=== PATIENT | female | born 1970 | race Caucasian/White ===

== ENCOUNTER 2019-10-25 14:23 | Emergency (ER) | payer OTHER, SELFPAY ==
[2019-10-25 14:34] VITALS: BP 152/70; PULSE 79; RESP 16; TEMP 36.1; O2SAT 100
[2019-10-25] MEDS: KETOROLAC (*BKC) 60 MG/2 ML VIAL IM (14:52)
[2019-10-25] MEDS: ONDANSETRON HCL ODT 4 MG TABLET 8 MG SUBLINGUAL (14:52)
--- NOTE | 2019-10-25 15:18 | ED.GENADULT ---
HPI - General Adult General Chief complaint: Headache Stated complaint: headache/vomiting History of Present Illness HPI narrative: Patient is a 49-year-old female presents to the urgent care via POV for evaluation of a migraine that occurred at approximately 11 AM. She reports her pain is in the frontal and occipital region of head. She also reports fatigue, nausea and vomiting. Current pain level is 10 out of 10. She states she has not experienced a migraine in months due to auricle piercing. She states pain is constant and throbbing in nature. Current migraine is similar to previous migraines. She states symptoms usually resolved with Maxalt although did not have any with her when migraine began. Noise worsened symptoms. Pertinent negatives: fever, chills, sweats, change in appetite, poor p.o. intake, dizziness, lymphadenopathy, vision changes, swelling, erythema, weakness, syncope, vertigo, LOC, seizure activity, memory loss, photophobia, difficulty with coordination/gait/equilibrium, paresthesias, abdominal pain, vomiting, diarrhea, constipation, shortness of breath, cough, chest pain, and heart palpitations/murmurs. Related Data Home Medications Medication Instructions Recorded Confirmed Anafranil 125 mg 10/25/19 Cinnamon 10/25/19 Stress B-Complex 10/25/19 Zyrtec 10/25/19 aripiprazole mg 10/25/19 aspirin 10/25/19 biotin mcg PO 10/25/19 buspirone mg 10/25/19 cholecalciferol (vitamin D3) 10/25/19 [Vitamin D3] clomipramine 10/25/19 diltiazem HCl PO 10/25/19 metoprolol succinate PO 10/25/19 multivitamin with iron 10/25/19 rosuvastatin mg 10/25/19 vortioxetine [Trintellix] mg 10/25/19 Allergies Allergy/AdvReac Type Severity Reaction Status Date / Time hydromorphone Allergy Intermediate Itching Verified 09/13/15 10:53 prochlorperazine Allergy Intermediate Verified 09/13/15 10:53 sumatriptan Allergy Intermediate Verified 09/13/15 10:54 Review of Systems Review of Systems: Narrative: All other systems reviewed and are negative PMFSH Comments I have reviewed and agree with the patient's past medical, surgical, social, and family hx as documented by the RN. There is no relevant family history pertinent to the presenting complaint. Exam Narrative: Exam Narrative: GENERAL: Well-appearing, well-nourished, and in no acute distress. Patient appears to be in pain HEAD: Normocephalic, atraumatic. No sinus tenderness or facial swelling appreciated. No evidence of ear bleeding or drainage from ears. No evidence of foreign bodies. No signs of basilar skull fracture: no hemotympanum, aaron's sign, or raccoon's eyes. EYES: PERRLA and EOMI. No evidence of erythema, swelling, or drainage. ENT: Bilateral external ears and ear canals normal. Bilateral TMs are normal. No TM perforation. Nares clear, no septal hematoma or epistaxis. Bilateral turbinates without erythema/ swelling. Mucous membranes moist and pink. Uvula is midline without erythema and swelling. No evidence of petechial rash, cobblestoning, lesions, ulcers, erythema, swelling, exudates, peritonsillar abscess, tenting, or drooling. Breath odor and voice normal. NECK: Supple. No injury or pain appreciated. No lymphadenopathy or nuchal rigidity appreciated. CHEST: Bilateral lung villarreal are clear to auscultation. No respiratory distress. No evidence of cough or pleuritic cp upon examination. No evidence of deformity, flail chest, hematomas, contusions, lacerations. HEART: Regular rate and rhythm. No murmur, gallop, or rub heard. ABDOMEN: Soft, nontender, nondistended, normal active bowel sounds in all quadrants. No guarding. No rebound tenderness. No pulsatile or palpable abdominal mass(es). No CVAT. No evidence of seat belt sign. BACK: Full ROM. No evidence of deformity, spasm, mass, spinal tenderness, or swelling. Bilateral SLR tests negative. EXTREMITIES: Normal range of motion. No edema. SKIN: Warm, no
== END 2019-10-25 15:35 | disposition home or self-care (01) ==
PROVIDERS: Emergency Provider Nurse Practitioner Family
DX: G43.909 Migraine, unspecified, not intractable, without status migrainosus (principal); I10 Essential (primary) hypertension; F41.9 Anxiety disorder, unspecified; F32.9 Major depressive disorder, single episode, unspecified
CPT/HCPCS: 96372; 99203; A9270; G0463; J1885

== ENCOUNTER 2020-04-28 08:53 | Emergency (ER) | payer OTHER, BC, SELFPAY ==
[2020-04-28 09:10] VITALS: BP 153/98; PULSE 94; RESP 18; TEMP 36.4; O2SAT 100
--- NOTE | 2020-04-28 09:15 | ED.GENADULT ---
HPI - General Adult General Chief complaint: Headache Stated complaint: migrane Time Seen by Provider: 04/28/20 09:15 Source: patient and RN notes reviewed Mode of arrival: ambulatory Limitations: no limitations History of Present Illness HPI narrative: 49-year-old female presents with complains of migraine with light sensitivity, nausea, and vomiting for the past 9 hours. Maxalt without relief due to emesis after taking it. Nithya says she has nausea with several emesis this morning. This [place] is not the WORST one of her life. No neck stiffness. No fever or chills. No URI symptoms. No head injury. History of migraines. Denies dizziness, vision change, confusion, or seizure activity. Denies being , endometrial ablation. The patient reports she have not been diagnosed with COVID-19. The patient reports she is not waiting for the results of a COVID-19 lab test. The patient reports she do not have fever, chills, weakness, fatigue, or myalgia. The patient reports she do not have a new or worsening cough or shortness of breath. Denies chest pain. The patient reports she do not have any rhinorrhea, congestion, loss of taste, sore throat, abdominal pain, and diarrhea. Tolerating po intake fairly. Denies recent traveling. Denies concerns for COVID-19 or exposures been home with limited outdoor exposure except for essential household needs, work, and return home. At this time, patient is not suspected of having COVID-19. Some parts of this dictation were generated by voice recognition software and may contain typographical and/or grammatical inaccuracies. Related Data Home Medications Medication Instructions Recorded Confirmed alprazolam [Xanax] 0.5 mg PO DAILY 04/28/20 04/28/20 aripiprazole [Abilify] 10 mg PO DAILY 04/28/20 04/28/20 aspirin 81 mg PO DAILY 04/28/20 04/28/20 buspirone 30 mg PO BID 04/28/20 04/28/20 cetirizine [Zyrtec] 10 mg PO DAILY 04/28/20 04/28/20 clomipramine [Anafranil] 50 mg PO DAILY 04/28/20 04/28/20 lisinopril [Zestril] 20 mg PO BID 04/28/20 04/28/20 metoprolol succinate [Toprol XL] 100 mg PO BID 04/28/20 04/28/20 pediatric [id number] 1 tablet PO DAILY 04/28/20 04/28/20 [Multi-Vitamins with Iron] rizatriptan [Maxalt] 10 mg PO ONCE 04/28/20 04/28/20 vortioxetine [Trintellix] 20 mg PO DAILY 04/28/20 04/28/20 Allergies Allergy/AdvReac Type Severity Reaction Status Date / Time hydromorphone Allergy Intermediate Itching Verified 09/13/15 10:53 prochlorperazine Allergy Intermediate Verified 09/13/15 10:53 sumatriptan Allergy Intermediate Verified 09/13/15 10:54 Review of Systems Review of Systems: Narrative: CONSTITUTIONAL: Denies fever, chills, sweats. EYES: Denies visual changes, redness, discharge. ENT: Denies rhinorrhea, congestion, sore throat, otalgia. CARDIOVASCULAR: Denies chest pain, palpitations, edema. RESPIRATORY: Denies dyspnea, wheezing, cough. GASTROINTESTINAL: Denies abdominal pain, nausea, vomiting, or diarrhea. GENITOURINARY: Denies dysuria, hematuria, abnormal discharge. SKIN: Denies rash or itching. MUSCULOSKELETAL: Denies acute back pain, joint pain, or myalgia. NEUROLOGIC: Denies numbness or focal weakness. Complaints of migraine with light sensitivity, nausea, and vomiting. PSYCHIATRIC: Denies anxiety or depression. All systems reviewed & are unremarkable except as noted in HPI and below. 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
[2020-04-28] MEDS: KETOROLAC (*BKC) 60 MG/2 ML VIAL IM (09:35)
[2020-04-28] MEDS: ONDANSETRON INJ 4 MG/2 ML VIAL IM (09:36)
== END 2020-04-28 10:07 | disposition home or self-care (01) ==
PROVIDERS: Emergency Provider Nurse Practitioner Family; PCP Family Medicine
DX: G43.109 Migraine with aura, not intractable, without status migrainosus (principal); I10 Essential (primary) hypertension; Z95.3 Presence of xenogenic heart valve
CPT/HCPCS: 96372; 99214; G0463; J1885; J2405

== ENCOUNTER 2020-09-01 10:42 | Emergency (ER) | payer OTHER, SELFPAY ==
--- NOTE | 2020-09-01 10:52 | ED.HA ---
HPI - Headache General Chief Complaint: Headache Stated Complaint: MIGRAINE Time Seen by Provider: 09/01/20 11:03 Source: patient and RN notes reviewed Mode of arrival: ambulatory Limitations: no limitations History of Present Illness HPI Narrative: 50-year-old female presents with concern for migraine headache that started at 1:30 AM. Reports history of migraines, reports she used to take Maxalt however it quit working. Reports she plans to make an appointment with her primary care provider regarding migraine management. Reports a headache at the base of her skull, light sensitivity, nausea, vomiting. She denies thunderclap headache, weakness in any extremity,, confusion, dizziness. Denies head injury, head trauma. Denies fever, neck stiffness, abdominal pain. MD elicited complaint: migraine Related Data Home Medications Medication Instructions Recorded Confirmed aripiprazole [Abilify] 10 mg PO DAILY 09/01/20 09/01/20 buspirone [BuSpar] 30 mg PO BID 09/01/20 09/01/20 lisinopril [Zestril] 20 mg PO BID 09/01/20 09/01/20 metoprolol succinate [Toprol XL] 100 mg PO BID 09/01/20 09/01/20 rosuvastatin 10 mg PO DAILY 09/01/20 09/01/20 vortioxetine [Trintellix] 20 mg PO DAILY 09/01/20 09/01/20 Allergies Allergy/AdvReac Type Severity Reaction Status Date / Time hydromorphone Allergy Intermediate Itching Verified 09/01/20 11:01 prochlorperazine Allergy Intermediate Verified 09/01/20 11:01 sumatriptan Allergy Intermediate Verified 09/01/20 11:01 Review of Systems Review of Systems: Narrative: CONSTITUTIONAL: Denies malaise, chills, sweats, or fever. EYES: Denies visual changes, redness, or discharge. Reports photophobia ENT: Denies rhinorrhea, congestion, sinus pain, otalgia or sore throat. CARDIOVASCULAR: Denies chest pain, palpitations, or edema. RESPIRATORY: Denies cough or dyspnea. GASTROINTESTINAL: Denies abdominal pain, diarrhea. Reports nausea vomiting MUSCULOSKELETAL: Denies back pain, joint pain, or myalgia. NEUROLOGIC: Denies numbness, weakness. Reports migraine headache. PSYCHIATRIC: Denies anxiety or depression. 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 There is no relevant family history pertinent to the presenting complaint Exam Narrative: Exam Narrative: GENERAL: Well-appearing, well-nourished, and in no acute distress. HEAD: Normocephalic, atraumatic. EYES: PERRLA, conjunctivae clear, and EOMI. No nystagmus. ENT: Mucous membranes moist. NECK: Supple. No lymphadenopathy. No jugular venous distension, thyromegaly, or carotid bruits. Carotids were easily palpable bilaterally. CHEST: No respiratory distress. Clear to auscultation. No bony deformities, no asymmetry. Speaks in full sentences. HEART: Regular rate and rhythm. No murmur heard. SKIN: Warm, dry, no rash. NEURO: Alert and oriented x3. No focal deficits. Cranial nerves II through XII grossly intact PSYCH: Normal mood and affect Course Course Emergency Course: Patient is aware of diagnosis, understands and agrees to treatment plan. Anticipatory guidance given. Patient agrees to follow-up as directed and is aware of reasons to seek care
[2020-09-01 11:03] VITALS: BP 154/102; PULSE 99; RESP 20; TEMP 36.6; O2SAT 99
[2020-09-01] MEDS: ONDANSETRON HCL ODT 4 MG TABLET SUBLINGUAL (11:09)
[2020-09-01] MEDS: KETOROLAC (*BKC) 60 MG/2 ML VIAL IM (11:10)
== END 2020-09-01 11:32 | disposition home or self-care (01) ==
PROVIDERS: Emergency Provider Nurse Practitioner; PCP Family Medicine
DX: G43.919 Migraine, unspecified, intractable, without status migrainosus (principal); F41.9 Anxiety disorder, unspecified; F32.9 Major depressive disorder, single episode, unspecified; I10 Essential (primary) hypertension
CPT/HCPCS: 96372; 99213; A9270; G0463; J1885

== ENCOUNTER 2020-09-08 12:55 | Emergency (ER) | payer OTHER, SELFPAY ==
[2020-09-08 13:08] VITALS: BP 150/82; PULSE 94; RESP 16; TEMP 36.1; O2SAT 98
--- NOTE | 2020-09-08 13:09 | ED.GENADULT ---
HPI - General Adult General Chief complaint: Nausea/Vomiting/Diarrhea Stated complaint: Throwing Up Time Seen by Provider: 09/08/20 13:09 Source: patient Mode of arrival: ambulatory Limitations: no limitations History of Present Illness HPI narrative: 50-year-old female patient presents to the [facility] with complaints of nausea and vomiting since this past Tuesday. Patient states she is also had a little bit of congestion and some nasal drainage which she thinks might be contributing to it. Patient denies any diarrhea and denies any abdominal pain. Denies any pain with urination. Patient denies any fevers, body aches or chills. 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 Related Data Home Medications Medication Instructions Recorded Confirmed aripiprazole [Abilify] 10 mg PO DAILY 09/01/20 09/01/20 buspirone [BuSpar] 30 mg PO BID 09/01/20 09/01/20 lisinopril [Zestril] 20 mg PO BID 09/01/20 09/01/20 metoprolol succinate [Toprol XL] 100 mg PO BID 09/01/20 09/01/20 rosuvastatin 10 mg PO DAILY 09/01/20 09/01/20 vortioxetine [Trintellix] 20 mg PO DAILY 09/01/20 09/01/20 Allergies Allergy/AdvReac Type Severity Reaction Status Date / Time hydromorphone Allergy Intermediate Itching Verified 09/01/20 11:01 prochlorperazine Allergy Intermediate Other Verified 09/08/20 13:03 sumatriptan Allergy Intermediate Insomnia Verified 09/08/20 13:03 Review of Systems Review of Systems: Narrative: CONSTITUTIONAL: Denies fever, chills, or sweats. EYES: Denies visual changes, redness, or discharge. ENT: Positive rhinorrhea, congestion, denies sore throat, or otalgia. CARDIOVASCULAR: Denies chest pain, palpitations, or edema. RESPIRATORY: Denies cough or dyspnea. GASTROINTESTINAL: Denies abdominal pain, positive nausea, vomiting, denies diarrhea. GENITOURINARY: Denies dysuria or hematuria. SKIN: Denies rash or itching. MUSCULOSKELETAL: Denies back pain, joint pain, or myalgia. NEUROLOGIC: Denies headache, numbness, or weakness. PSYCHIATRIC: Denies anxiety or depression. 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 There is no relevant family history pertinent to the presenting complaint. Exam Narrative: Exam Narrative: GENERAL: Well-appearing, well-nourished, and in no acute distress. HEAD: Normocephalic, atraumatic. EYES: PERRLA and EOMI. ENT: Nares clear, no rhinorrhea or epistaxis. Mucous membranes moist. Posterior pharynx with no erythema, tonsillar joint, exudates or lesions present. Bilateral TMs are clear with no erythema or foreign bodies to the canal. NECK: Supple. No lymphadenopathy CHEST: Clear to auscultation. No respiratory distress. HEART: Regular rate and rhythm. No murmur heard. Normal peripheral pulses. ABDOMEN: Soft, flat, nondistended. No guarding, rebound tenderness, or rigid. No pulsatilla masses. Bowel sounds present in all four quadrants. No organomegaly. Negative Tilley?s sign. No periumbicial tenderness. No Supra public tenderness or distension. Good femoral pulses bilaterally. No hernia noted. No scars or surface trauma. EXTREMITIES: Normal range of motion. No edema. SKIN: Warm, dry, no rash. NEURO: No focal deficits. Alert and oriented x3.
[2020-09-08] MEDS: ONDANSETRON HCL ODT 4 MG TABLET PO (13:20)
[2020-09-09 19:17] LABS: SARS-CoV-2 RNA PCR Negative
--- NOTE | 2020-09-10 12:33 | PC.NURSE ---
Patient called, advised her covid test is negative
== END 2020-09-08 13:55 | disposition home or self-care (01) ==
PROVIDERS: Emergency Provider Nurse Practitioner Family; PCP Family Medicine
DX: Z20.822 Contact with and (suspected) exposure to COVID-19 (principal); R11.10 Vomiting, unspecified; I10 Essential (primary) hypertension; F41.9 Anxiety disorder, unspecified; F32.9 Major depressive disorder, single episode, unspecified
CPT/HCPCS: 87426; 99213; A9270; C9803; G0463; U0003; U0005

== ENCOUNTER 2022-01-02 14:57 | Emergency (ER) | payer OTHER, SELFPAY ==
[2022-01-02 15:10] VITALS: BP 136/77; PULSE 71; RESP 18; TEMP 36.6; O2SAT 100
--- NOTE | 2022-01-02 15:10 | ED.DIZZY ---
HPI - Dizziness General Chief Complaint: Dizziness Stated Complaint: Dizzy Time Seen by Provider: 01/02/22 15:10 Source: patient and RN notes reviewed Mode of arrival: ambulatory Limitations: no limitations History of Present Illness HPI Narrative: 51-year-old female presented for complaint of lightheadedness when changing positions, onset yesterday. She states she has a history of similar symptoms when she had an ear infection. She denies associated headache, vision changes, tinnitus, ear pain, sinus congestion or pressure. She denies chest pain, palpitations or shortness of breath. Symptoms improve when standing after few minutes. History of aortic valve replacement. Related Data Home Medications Medication Instructions Recorded Confirmed aripiprazole 10 mg tablet (Abilify) 10 mg PO DAILY 09/01/20 01/02/22 buspirone 30 mg tablet 30 mg PO BID 09/01/20 01/02/22 lisinopril 20 mg tablet (Zestril) 20 mg PO BID 09/01/20 01/02/22 metoprolol succinate 100 mg 100 mg PO BID 09/01/20 01/02/22 tablet,extended release 24 hr (Toprol XL) rosuvastatin 10 mg tablet 10 mg PO DAILY 09/01/20 01/02/22 vortioxetine 20 mg tablet 20 mg PO DAILY 09/01/20 01/02/22 (Trintellix) Allergies Allergy/AdvReac Type Severity Reaction Status Date / Time hydromorphone Allergy Intermediate Itching Verified 01/02/22 15:00 prochlorperazine Allergy Intermediate Other Verified 01/02/22 15:00 sumatriptan Allergy Intermediate Insomnia Verified 01/02/22 15:00 Review of Systems Review of Systems: CONSTITUTIONAL: Denies body aches, fever, chills, or sweats. EYES: Denies visual changes ENT: Denies rhinorrhea, congestion CARDIOVASCULAR: Denies chest pain, palpitations, or edema. RESPIRATORY: Denies cough or dyspnea. GASTROINTESTINAL: Denies abdominal pain, nausea, vomiting, or diarrhea. MUSCULOSKELETAL: Denies back pain, joint pain, or myalgia. 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 Please see nursing chart for further information. There is no relevant family history pertinent to the presenting complaint Exam Narrative: GENERAL: Well-appearing HEAD: Normocephalic, atraumatic. EYES: PERRLA, EOMI. No nystagmus ENT: Mucous membranes pink and moist. No rhinorrhea. TMs normal bilaterally. NECK: Normal AROM. Supple. No lymphadenopathy. CHEST: Clear to auscultation. HEART: Regular rate and rhythm. Aortic murmur appreciated. Normal peripheral pulses. ABDOMEN: Soft, nontender, nondistended MUSCULOSKELETAL: No bony tenderness. NEURO:No focal deficits. Alert and oriented x3. EOMs intact without nystagmus. No facial droop/asymmetry noted bilaterally. Grimace intact. Intact sensation in face. Hearing intact bilaterally. Ambulatory exam with a normal based, steady gait. PSYCH: Normal affect. Course Course Emergency Course: Patient is aware of diagnosis, understands and agrees to treatment plan. Anticipatory guidance given. Patient agrees to follow-up as directed and is aware of reasons to seek care at the [facility]
== END 2022-01-02 15:30 | disposition home or self-care (01) ==
PROVIDERS: Emergency Provider Nurse Practitioner Family; PCP Family Medicine
DX: H81.10 Benign paroxysmal vertigo, unspecified ear (principal); I10 Essential (primary) hypertension; F41.9 Anxiety disorder, unspecified; F32.A Depression, unspecified; Z95.2 Presence of prosthetic heart valve
CPT/HCPCS: 99213; G0463

== ENCOUNTER 2022-02-18 08:31 | Emergency (ER) | payer OTHER, SELFPAY ==
[2022-02-18 08:43] VITALS: BP 217/95; PULSE 81; RESP 18; TEMP 35.9; O2SAT 100
--- NOTE | 2022-02-18 08:43 | ED.GENADULT ---
HPI - General Adult General Chief complaint: Headache Stated complaint: Migraine Time Seen by Provider: 02/18/22 08:44 Source: patient, RN notes reviewed and old records reviewed Mode of arrival: ambulatory Limitations: no limitations History of Present Illness HPI narrative: 51-year-old female presents to the [facility] with complaints of a migraine that started at 530 this morning. Patient has a history of migraines and hypertension. Patient states that she did take her blood pressure medication last night. Is photo and phono sensitive. Also complaining of vomiting. Pain increases with movement. Reports she is already taken to [facility]. Onset (ago): hour(s) (3-4) Related Data Home Medications Medication Instructions Recorded Confirmed aripiprazole 10 mg tablet (Abilify) 10 mg PO DAILY 09/01/20 02/18/22 buspirone 30 mg tablet 30 mg PO BID 09/01/20 02/18/22 lisinopril 20 mg tablet (Zestril) 20 mg PO BID 09/01/20 02/18/22 metoprolol succinate 100 mg 100 mg PO BID 09/01/20 02/18/22 tablet,extended release 24 hr (Toprol XL) rosuvastatin 10 mg tablet 10 mg PO DAILY 09/01/20 02/18/22 vortioxetine 20 mg tablet 20 mg PO DAILY 09/01/20 02/18/22 (Trintellix) Allergies Allergy/AdvReac Type Severity Reaction Status Date / Time hydromorphone Allergy Intermediate Itching Verified 02/18/22 08:48 prochlorperazine Allergy Intermediate Other Verified 02/18/22 08:48 sumatriptan Allergy Intermediate Insomnia Verified 02/18/22 08:48 Review of Systems Review of Systems: All systems reviewed & are unremarkable except as noted in HPI and below Constitutional: Constitutional: Reports no additional constitutional complaints, Denies chills and Denies fever(s) Eyes: Eyes: Reports no additional eye complaints ENT: Reports system reviewed and no additional complaints, except as documented Cardiovascular: Cardiovascular: Reports no additional cardiovascular complaints Respiratory: Respiratory: Reports no additional respiratory complaints Gastrointestinal: Gastrointestinal: Reports no additional gastrointestinal complaints Musculoskeletal: Musculoskeletal: Reports no additional musculoskeletal complaints Integumentary/Breasts: Skin/Breast: Reports system reviewed and no additional complaints, except as docu Neurologic: Reports as per HPI, Denies confusion, Denies vertigo, Reports headache(s), Denies focal weakness, Denies numbness and Denies weakness Psychiatric: Psychiatric: Reports no additional psychiatric complaints Allergic/Immunologic: Allergic/Immunologic: Reports no additional allergic/immunologic complaints PMFSH Past Medical History Medical History Anxiety Depression Hx of migraines Hypertension Surgical History Surgical History History of endometrial ablation 2014 History of heart surgery 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 There is no relevant family history pertinent to the patient complaint. Exam Const: General: healthy appearing, alert and uncomfortable Nutritional Appearance: well nourished and obese Orientation/consciousness: patient oriented x3 Limitations: no limitations HENMT: Head: normal to inspection Ears: external ears normal General nose exam: Normal external nose present Face and sinus: normal facial exam Mouth: Yes lip normal and Yes dry mucous membranes Eyes: General: appearance normal, both eyes and all
[2022-02-18] MEDS: ONDANSETRON HCL ODT 4 MG TABLET SUBLINGUAL (09:01)
== END 2022-02-18 08:59 | disposition short-term general hospital (02) ==
PROVIDERS: Emergency Provider Nurse Practitioner; PCP Family Medicine
DX: I10 Essential (primary) hypertension (principal); R51.9 Headache, unspecified; F41.9 Anxiety disorder, unspecified; F32.A Depression, unspecified
CPT/HCPCS: 99213; A9270; G0463

== ENCOUNTER 2022-02-18 09:13 | Emergency (ER) | payer OTHER, SELFPAY ==
[2022-02-18] VITALS (8 sets, daily range): BP systolic 146–207; BP diastolic 66–95; PULSE 86–100; RESP 14–21; TEMP 36.6; O2SAT 99–100
--- NOTE | ~2022-02-18 | CT_ITS ---
EXAMINATION: CT brain wo con DATE: 02/18/2022 10:30 INDICATION: Headache. Hypertension. TECHNIQUE: Computed tomography (CT) of the head was performed without intravenous contrast. Sagittal and coronal reconstructions were performed. The mA was adjusted according to patient size. Iterative reconstruction technique was employed. The dose-length product was 605.33 mGy-cm. COMPARISON: None FINDINGS: No acute intracranial hemorrhage, acute infarction or abnormal extra axial fluid collection. Ventricl es are normal and symmetric. No mass/mass effect. The orbits, paranasal sinuses and mastoid air cells are normal. IMPRESSION: 1. No acute intracranial process. Reviewed, dictated and finalized at location B.
--- NOTE | ~2022-02-18 | XR_ITS ---
EXAMINATION: XR chest 1V portable DATE: 02/18/2022 09:46 INDICATION: Hypertension. Nausea. TECHNIQUE: frontal view of the chest was obtained. COMPARISON: None FINDINGS: The lungs are clear with no focal airspace opacities, pulmonary edema, pleural effusion or pneumothor ax. The cardiomediastinal silhouette is normal. Median sternotomy wires. 3 small round densities 0.2 along the aortic valve plane which could be related to either aortic valve repair osteoarthritis rela aakash to coronary artery bypass grafting. Correlate with surgical history. Cholecystectomy clips in rig ht upper quadrant. IMPRESSION: 1. No acute cardiopulmonary disease. Reviewed, dictated and finalized at location B.
--- NOTE | 2022-02-18 09:33 | ECG_ITS ---
Measurements Intervals [place] Rate: 83 P: 28 OK: 155 QRS: 22 QRSD: 95 T: 39 QT: 352 QTc: 414 Interpretive Statements SINUS RHYTHM POSSIBLE LEFT ATRIAL ENLARGEMENT BASELINE ARTIFACT- I, II, AVR, AVL, AVF, V4-V6 BORDERLINE ECG Electronically Signed On 02-18-2022 10:52:06 CDT by Mumtaz Buckner D.O.
--- NOTE | 2022-02-18 09:34 | ED.HA ---
HPI - Headache General Chief Complaint: Headache Stated Complaint: Migraine and vomiting that began this morning Time Seen by Provider: 02/18/22 09:21 History of Present Illness HPI Narrative: The patient is a 51-year-old female with a history of hypertension and migraine headache presenting to the emergency department after she was evaluated at an urgent care for severe headache noted to be extremely hypertensive and thus elected to leave the urgent care AGAINST MEDICAL ADVICE and come to this emergency department via personal vehicle. Patient is already taken Maxalt this morning without improvement in her symptoms. She states that the headache did awaken her from sleep and is a sharp, posterior headache with radiation to the front of her head. She denies any vision changes, floaters or flashers. She denies any unilateral weakness or numbness. No difficulty with speech, no difficulty with ambulation. She denies any current dizziness or lightheadedness. Patient reports associated nausea and vomiting this morning. She did not take her antihypertensive. She states that symptoms feel similar to previous migraine headache. Related Data Home Medications Medication Instructions Recorded Confirmed aripiprazole 10 mg tablet mg 02/18/22 02/18/22 buspirone 30 mg tablet mg 02/18/22 lisinopril 20 mg tablet mg 02/18/22 metformin 500 mg tablet,extended tablet PO 02/18/22 release 24 hr metoprolol tartrate 100 mg tablet tablet 02/18/22 pantoprazole 20 mg tablet,delayed tablet PO 02/18/22 release rizatriptan 10 mg tablet tablet 02/18/22 rosuvastatin 10 mg tablet mg 02/18/22 vortioxetine 20 mg tablet mg 02/18/22 (Trintellix) Allergies Allergy/AdvReac Type Severity Reaction Status Date / Time hydromorphone Allergy Intermediate Itching Verified 02/18/22 08:48 prochlorperazine Allergy Intermediate Other Verified 02/18/22 08:48 sumatriptan Allergy Intermediate Insomnia Verified 02/18/22 08:48 Review of Systems Review of Systems: CONSTITUTIONAL: Denies fever, chills, or sweats. EYES: Denies visual changes, redness, or discharge. ENT: Denies rhinorrhea, congestion, sore throat, or otalgia. CARDIOVASCULAR: Denies chest pain, palpitations, or edema. RESPIRATORY: Denies cough or dyspnea. GASTROINTESTINAL: Denies abdominal pain, reports nausea and vomiting GENITOURINARY: Denies dysuria or hematuria. SKIN: Denies rash or itching. MUSCULOSKELETAL: Denies back pain, joint pain, or myalgia. 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 EYES: PERRLA and EOMI. ENT: Nares clear, no rhinorrhea or epistaxis. Mucous membranes moist. NECK: Supple. CHEST: No respiratory distress, breathing even and non labored HEART: Regular rate, sinus rhythm, holosystolic murmur present, grade 4/6 ABDOMEN:Non distended, non tender EXTREMITIES: Normal range of motion. No edema. SKIN: Warm, dry, no rash. NEURO:No focal deficits. Alert and oriented x3 Course Vital Signs Vital signs: Vital Signs Temperature 36.6 C 02/18/22 09:14 Pulse Rate 86 02/18/22 09:14 Respiratory Rate 14 02/18/22 09:14 Blood Pressure 207/89 H 02/18/22 09:14 Pulse Oximetry 10
[2022-02-18] MEDS: SODIUM CHLORIDE 0.9% IV 500 ML 999 ML IV CONT (10:05)
[2022-02-18] MEDS: hydrALAZINE HCL 20 MG/ML VIAL 10 MG IV PUSH (10:09)
[2022-02-18] MEDS: diphenhydrAMINE HCl INJ 50 MG/ML VIAL 25 MG IV PUSH (10:10)
[2022-02-18] MEDS: METOCLOPRAMIDE HCL INJ 10 MG/2 ML VIAL IV PUSH (10:11)
[2022-02-18 10:18] LABS: Basophils Percent Auto 0.2 % (0.2-1.2); Eosinophils Percent Auto 0.2 % (0-4.4); Hematocrit 42.2 % (37.0-47.0); Hemoglobin 13.6 g/dL (12.0-15.0); Immature Granulocyte Absolute 0.03 K/mm3 (0.00-0.031); Immature Granulocyte Percent A 0.2 % (0-0.5); Lymphocytes Absolute Auto 1.12 K/mm3 (0.9-3.2); Mean Corpuscular HGB Conc 32.2 g/dl (32-36); Mean Corpuscular Hemoglobin 30.2 pg (26-34); Mean Corpuscular Volume 93.6 fl (80-100); Monocytes Absolute Auto 0.3 K/mm3 (0.1-0.6); Monocytes Percent Auto 2.7 % (2.6-8.5); Neutrophils Absolute Auto 10.9 K/mm3 (1.3-6.7); Neutrophils Percent Auto 87.7 % (45.5-73.1); Platelet Count Result 229 k/mm3 (150-375); Red Blood Count 4.51 M/mm3 (4.2-5.4); Red Cell Distribution Width 11.9 % (11.5-14.5); White Blood Count 12.4 K/mm3 (4.5-10.0)
[2022-02-18 10:32] LABS: Prothrombin Time 12.9 Seconds (11.1-14.7)
[2022-02-18 10:33] LABS: Partial Thromboplastin Time 26.6 SECONDS (22.3-36.8)
[2022-02-18 10:37] LABS: Anion Gap 7 mmol/L (8-16); Blood Urea Nitrogen 17 mg/dL (7-17); Calcium 9.1 mg/dL (8.4-10.2); Carbon Dioxide 28 mmol/L (22-30); Chloride 103 mmol/L (98-107); Estimated CRCL calculation 96 ml/min; Estimated Glomerular Filt Rate > 60; Glucose 242 mg/dL (65-110); Potassium 4.2 mmol/L (3.4-5.0); Sodium 138 mmol/L (137-145)
[2022-02-18 10:50] LABS: Troponin I < 0.012 ng/mL (0.000-0.034)
[2022-02-18] MEDS: KETOROLAC 15 MG/ML VIAL (*BKC) IV PUSH (11:01)
[2022-02-18 12:20] LABS: Appearance Urine Slightly Cloudy (Clear); Bilirubin Urine Negative (Negative); Blood Urine Negative (Negative); Color Urine Yellow (Yellow); Glucose Urine UA 2+ mg/dL (Negative); Ketones Urine 1+ mg/dL (Negative); Leukocyte Esterase Ur Negative LEU/UL (Negative); Nitrate Urine Negative (Negative); Protein Urine 2+ mg/dL (Negative); Specific Grav Ur >= 1.030 (1.001-1.035); Urobilinogen Urine 0.2 mg/dL (<2.0)
[2022-02-18 12:31] LABS: Mucus Urine Rare /lpf; RBC Urine 0-2 /hpf (0-2); Squamous Epithelial Cell Urine Few /hpf (Few)
[2022-02-18 12:35] LABS: Add Urine Microscopic? YES
== END 2022-02-18 12:39 | disposition home or self-care (01) ==
PROVIDERS: Emergency Provider Emergency Medicine; PCP Family Medicine
DX: G43.909 Migraine, unspecified, not intractable, without status migrainosus (principal); I16.9 Hypertensive crisis, unspecified; I10 Essential (primary) hypertension; F41.9 Anxiety disorder, unspecified; F32.A Depression, unspecified; Z79.84 Long term (current) use of oral hypoglycemic drugs; R94.31 Abnormal electrocardiogram [ECG] [EKG]
CPT/HCPCS: 36415; 70450; 71045; 80048; 81001; 84443; 84484; 85025; 85610; 85730; 87086; 93005; 96361; 96365; 96375; 99284; A9270; J0131; J0360; J1100; J1200; J1885; J2765; J7040

== ENCOUNTER 2022-05-29 09:08 | Emergency (ER) | payer OTHER, SELFPAY ==
--- NOTE | 2022-05-29 09:13 | ED.GENADULT ---
HPI - General Adult General Chief complaint: Headache Stated complaint: montes Time Seen by Provider: 05/29/22 09:14 Source: patient Mode of arrival: ambulatory Limitations: no limitations History of Present Illness HPI narrative: 51-year-old female patient presents to the [facility] with complaints of a migraine that started about 2 AM this morning. Patient states she had to take 2 doses of her triptan which does not seem to have been helping. Patient states the migraine is at the base of the skull and rates it 9 out of 10. Patient states this is pretty typical of her migraines. Patient states she also took some Zofran about 230 this morning that did subside the nausea and vomiting that she had. Patient states that she was vomiting yesterday and thinks that she might have some kind of stomach virus. Patient does work as a teacher in a school. Patient states that she had COVID a couple of months ago. Patient does not report any chest pain or shortness of breath at this time. Patient does have history of a valve replacement and only takes aspirin for this. Patient states she has had sensitive to the light but denies sensitivity to sound. Denies any blurred vision or double vision. Related Data Home Medications Medication Instructions Recorded Confirmed aripiprazole 10 mg tablet mg 02/18/22 02/18/22 buspirone 30 mg tablet mg 02/18/22 lisinopril 20 mg tablet mg 02/18/22 metformin 500 mg tablet,extended tablet PO 02/18/22 release 24 hr metoprolol tartrate 100 mg tablet tablet 02/18/22 pantoprazole 20 mg tablet,delayed tablet PO 02/18/22 release rizatriptan 10 mg tablet tablet 02/18/22 rosuvastatin 10 mg tablet mg 02/18/22 vortioxetine 20 mg tablet mg 02/18/22 (Trintellix) Allergies Allergy/AdvReac Type Severity Reaction Status Date / Time hydromorphone Allergy Intermediate Itching Verified 05/29/22 09:11 prochlorperazine Allergy Intermediate Other Verified 05/29/22 09:11 sumatriptan Allergy Intermediate Insomnia Verified 05/29/22 09:11 Review of Systems Review of Systems: CONSTITUTIONAL: Denies fever, chills, or sweats. EYES: Denies visual changes, redness, or discharge. ENT: Denies rhinorrhea, positive congestion, denies sore throat, or otalgia. CARDIOVASCULAR: Denies chest pain, palpitations, or edema. RESPIRATORY: Denies cough or dyspnea. GASTROINTESTINAL: Denies abdominal pain, positive nausea, vomiting, denies diarrhea. GENITOURINARY: Denies dysuria or hematuria. SKIN: Denies rash or itching. MUSCULOSKELETAL: Denies back pain, joint pain, or myalgia. NEUROLOGIC: Positive headache, denies numbness, or weakness. PSYCHIATRIC: Denies anxiety or depression. 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 There is no relevant family history pertinent to the presenting complaint. Exam Narrative: GENERAL: Well-appearing, well-nourished, and in no acute distress. HEAD: Normocephalic, atraumatic. EYES: PERRLA and EOMI. ENT: Nares clear, no rhinorrhea or epistaxis. Mucous membranes moist. NECK: Supple. No lymphadenopathy CHEST: Clear to auscultation. No respiratory distress. HEART: Regular rate and rhythm. No murmur heard. Normal peripheral pulses. ABDOMEN:
[2022-05-29 09:17] VITALS: BP 182/99; PULSE 90; RESP 16; TEMP 36.4; O2SAT 99
--- NOTE | 2022-05-29 09:45 | ECG_ITS ---
Measurements Intervals [place] Rate: 86 P: 87 VA: 142 QRS: 58 QRSD: 81 T: 74 QT: 351 QTc: 420 Interpretive Statements SINUS RHYTHM POSSIBLE LEFT ATRIAL ENLARGEMENT [-0.1mV P WAVE IN V1/V2] BORDERLINE ECG COMPARED TO ECG 02/18/2022 10:02:00 NO SIGNIFICANT CHANGES Electronically Signed On 05-31-2022 16:01:59 CDT by Leland Villafuerte M.D.
[2022-05-29] MEDS: KETOROLAC (*BKC) 60 MG/2 ML VIAL IM (09:56)
[2022-05-29] MEDS: ONDANSETRON HCL ODT 4 MG TABLET PO (09:56)
== END 2022-05-29 10:40 | disposition home or self-care (01) ==
PROVIDERS: Emergency Provider Nurse Practitioner Family; PCP Family Medicine
DX: G43.909 Migraine, unspecified, not intractable, without status migrainosus (principal); Z20.822 Contact with and (suspected) exposure to COVID-19; I10 Essential (primary) hypertension
CPT/HCPCS: 87426; 87804; 93005; 96372; 99213; A9270; C9803; G0463; J1885

== ENCOUNTER 2022-07-07 05:54 | Emergency (ER) | payer OTHER, SELFPAY ==
--- NOTE | ~2022-07-07 | CT_ITS ---
EXAMINATION: CT brain wo con DATE: 07/07/2022 06:49 INDICATION: Migraine headache. TECHNIQUE: Computed tomography (CT) of the head was performed without intravenous contrast. The mA wa s adjusted according to patient size. Iterative reconstruction technique was employed. The dose-lengt h product was 681.00 mGy-cm. COMPARISON: Head CT 02/18/2022 FINDINGS: There is no intracranial hemorrhage, acute infarction, or abnormal intracranial mass lesion . The ventricles are normal in size. The orbits are normal. There is mucosal thickening in the parana ansley sinuses. The mastoid air cells are normal. IMPRESSION: 1. Normal brain. Reviewed, dictated and finalized at location A. [employer] IMPRESSION: 1. Normal brain.
[2022-07-07 06:01] VITALS: BP 226/91; PULSE 77; RESP 18; TEMP 36.4; O2SAT 98
--- NOTE | 2022-07-07 06:27 | ED.HA ---
HPI - Headache General Chief Complaint: Headache <Nell Lux MD - Last Filed: 07/07/22 07:26> Stated Complaint: Migraine <Nell Lux MD - Last Filed: 07/07/22 07:26> Time Seen by Provider: 07/07/22 06:27 <Nell Lux MD - Last Filed: 07/07/22 07:26> Source: patient <Nell Lux MD - Last Filed: 07/07/22 07:26> Mode of arrival: ambulatory <Nell Lux MD - Last Filed: 07/07/22 07:26> Limitations: no limitations <Nell Lux MD - Last Filed: 07/07/22 07:26> History of Present Illness HPI Narrative: Patient is a 51 yo female with a history of migraine headache and HTN presenting to the ER for evaluation of headache. Pt awakened this morning at 4 am with severe headache pain which she states is consistent with her previous migraine headaches. Patient reports allover headache pain with radiation to the back of the head. She reports associated light sensitivity, denies focal weakness or numbness. No difficulty with speech or vision changes. No blurry vision. Patient reports nausea as well as multiple episodes of nonbloody, nonbilious emesis. Patient denies fall or trauma. Patient does have a history of hypertension, states she has not taken her medication yet this morning. <Nell Lux MD - Last Filed: 07/07/22 07:26> Related Data Home Medications: Home Medications Medication Instructions Recorded Confirmed aripiprazole 10 mg tablet mg 02/18/22 02/18/22 buspirone 30 mg tablet mg 02/18/22 lisinopril 20 mg tablet mg 02/18/22 metformin 500 mg tablet,extended tablet PO 02/18/22 release 24 hr metoprolol tartrate 100 mg tablet tablet 02/18/22 pantoprazole 20 mg tablet,delayed tablet PO 02/18/22 release rizatriptan 10 mg tablet tablet 02/18/22 rosuvastatin 10 mg tablet mg 02/18/22 vortioxetine 20 mg tablet mg 02/18/22 (Trintellix) <Nell Lux MD - Last Filed: 07/07/22 07:26> Allergies/Adverse Reactions: Allergies Allergy/AdvReac Type Severity Reaction Status Date / Time hydromorphone Allergy Intermediate Itching Verified 07/07/22 06:36 prochlorperazine Allergy Intermediate Other Verified 07/07/22 06:36 sumatriptan Allergy Intermediate Insomnia Verified 07/07/22 06:36 <Nell Lux MD - Last Filed: 07/07/22 07:26> Review of Systems Review of Systems: CONSTITUTIONAL: Denies fever, chills, or sweats. EYES: Denies visual changes, redness, or discharge. Reports light sensitivity. ENT: Denies rhinorrhea, congestion, sore throat, or otalgia. CARDIOVASCULAR: Denies chest pain, palpitations, or edema. RESPIRATORY: Denies cough or dyspnea. GASTROINTESTINAL: Denies abdominal pain, reports nausea and vomiting GENITOURINARY: Denies dysuria or hematuria. SKIN: Denies rash or itching. MUSCULOSKELETAL: Denies back pain, joint pain, or myalgia. NEUROLOGIC: Reports headache without numbness, or weakness. 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
[2022-07-07] MEDS: diphenhydrAMINE HCl INJ 50 MG/ML VIAL 25 MG IV PUSH (06:29)
[2022-07-07] MEDS: SODIUM CHLORIDE 0.9% IV 1,000 ML 999 ML IV CONT (06:30)
[2022-07-07] MEDS: METOCLOPRAMIDE HCL INJ 10 MG/2 ML VIAL IV PUSH (06:34)
[2022-07-07 06:42] LABS: Basophils Percent Auto 0.2 % (0.2-1.2); Eosinophils Absolute Auto 0.2 K/mm3 (0-0.3); Eosinophils Percent Auto 1.4 % (0-4.4); Hematocrit 40.6 % (37.0-47.0); Hemoglobin 13.3 g/dL (12.0-15.0); Immature Granulocyte Absolute 0.06 K/mm3 (0.00-0.031); Immature Granulocyte Percent A 0.5 % (0-0.5); Lymphocytes Absolute Auto 2.96 K/mm3 (0.9-3.2); Lymphocytes Percent Auto 22.4 % (18.3-44.2); Mean Corpuscular HGB Conc 32.8 g/dl (32-36); Mean Corpuscular Hemoglobin 30.7 pg (26-34); Mean Corpuscular Volume 93.8 fl (80-100); Mean Platelet Volume 9.7 fl (7.4-10.4); Monocytes Absolute Auto 0.7 K/mm3 (0.1-0.6); Monocytes Percent Auto 5.4 % (2.6-8.5); Neutrophils Absolute Auto 9.3 K/mm3 (1.3-6.7); Neutrophils Percent Auto 70.1 % (45.5-73.1); Platelet Count Result 256 k/mm3 (150-375); Red Blood Count 4.33 M/mm3 (4.2-5.4); Red Cell Distribution Width 11.7 % (11.5-14.5); White Blood Count 13.2 K/mm3 (4.5-10.0)
[2022-07-07 06:49] LABS: Anion Gap 9 mmol/L (8-16); Blood Urea Nitrogen 11 mg/dL (7-17); Calcium 9.1 mg/dL (8.4-10.2); Carbon Dioxide 24 mmol/L (22-30); Chloride 105 mmol/L (98-107); Estimated CRCL calculation 96 ml/min; Estimated Glomerular Filt Rate > 60; Glucose 215 mg/dL (65-110); Potassium 3.7 mmol/L (3.4-5.0); Sodium 138 mmol/L (137-145)
[2022-07-07 08:59] VITALS: BP 145/78; PULSE 74; RESP 18; O2SAT 100
[2022-07-07 09:01] VITALS: PULSE 75
[2022-07-07] MEDS: METOPROLOL TARTRATE 50 MG TAB PO (09:01)
[2022-07-07] MEDS: lisinopriL 20 MG TABLET PO (09:02)
[2022-07-07] MEDS: KETOROLAC 30 MG/ML VIAL (*BKC) IV PUSH (10:04)
[2022-07-07 10:11] VITALS: BP 134/74; PULSE 70; RESP 18; O2SAT 98
== END 2022-07-07 10:13 | disposition home or self-care (01) ==
PROVIDERS: Emergency Medicine; Emergency Provider Emergency Medicine; PCP Family Medicine
DX: G43.909 Migraine, unspecified, not intractable, without status migrainosus (principal); F41.9 Anxiety disorder, unspecified; F32.9 Major depressive disorder, single episode, unspecified; I10 Essential (primary) hypertension
CPT/HCPCS: 36415; 70450; 80048; 85025; 96365; 96375; 99284; A9270; J0131; J1100; J1200; J1885; J2765; J7030

== ENCOUNTER 2022-08-11 12:14 | Emergency (ER) | payer OTHER, SELFPAY ==
[2022-08-11 12:22] VITALS: BP 150/83; PULSE 82; RESP 16; TEMP 37.4; O2SAT 100
--- NOTE | 2022-08-11 12:48 | ED.URI ---
HPI - URI/Sore Throat General Chief Complaint: Upper Respiratory Infection Stated Complaint: Sore Throat/ Ears Irritation Time Seen by Provider: 08/11/22 12:25 Source: patient Mode of arrival: ambulatory Limitations: no limitations History of Present Illness HPI Narrative: Ms. Hagan is a 51-year-old female patient presenting to the clinic today with complaints of sore throat and ear pain. She reports that symptoms just began yesterday. States she is having pain with swallowing. Does have some nasal congestion and a cough as well. She denies any known fever. MD elicited complaint: sore throat and nasal congestion Related Data Home Medications Medication Instructions Recorded Confirmed aripiprazole 10 mg tablet 10 mg PO DAILY 02/18/22 08/11/22 buspirone 30 mg tablet 30 mg PO DAILY 02/18/22 08/11/22 lisinopril 20 mg tablet 20 mg PO DAILY 02/18/22 08/11/22 metformin 500 mg tablet,extended 500 tablet PO DAILY 02/18/22 08/11/22 release 24 hr metoprolol tartrate 100 mg tablet 100 tablet PO DAILY 02/18/22 08/11/22 pantoprazole 20 mg tablet,delayed 20 tablet PO DAILY 02/18/22 08/11/22 release rizatriptan 10 mg tablet 10 tablet PO DAILY 02/18/22 08/11/22 rosuvastatin 10 mg tablet 10 mg PO DAILY 02/18/22 08/11/22 vortioxetine 20 mg tablet 20 mg PO DAILY 02/18/22 08/11/22 (Trintellix) Allergies Allergy/AdvReac Type Severity Reaction Status Date / Time hydromorphone Allergy Intermediate Itching Verified 08/11/22 12:37 prochlorperazine Allergy Intermediate Other Verified 08/11/22 12:37 sumatriptan Allergy Intermediate Insomnia Verified 08/11/22 12:37 Review of Systems Review of Systems: Pertinent positives per HPI. Patient denies any fever, chills, rash, headache, visual changes, dizziness, shortness of breath, chest pain, palpitations, nausea, vomiting, diarrhea, constipation, abdominal pain, or any urinary issues. 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 There is no relevant family history pertinent to the patient complaint. Exam Narrative: General: Well-developed, well nourished, in no apparent distress Head: Normocephalic, atraumatic Eyes: Pupils equally round and reactive to light bilaterally, EOM intact, sclera and conjunctive clear, no discharge, lids normal Ears: TMs intact and clear, ear canals clear, no drainage, grossly hearing normal. Nose: Nares patent, clear nasal discharge, no inflammation, no sinus tenderness. Mouth: Oral pharynx without lesions or masses, good dentition, MMM. oropharynx red with bilateral tonsillar swelling Neck: Supple, trachea midline, enlargement of anterior cervical nodes, no thyroid masses or goiter palpable. Cardio: Regular rate and rhythm, s1 and s2 normal, no murmur appreciated. Resp: Clear to auscultation bilaterally, no rhonchi, rales, wheezing or rubs Course Course Emergency Course: Portions of this record may have been created with voice recognition software. Level of Care: Express Care Visit Vital Signs Vital signs: Vital Signs Temperature 37.4 C 08/11/22 12:22 Pulse Rate 82 08/11/22 12:22 Respiratory Rate 16 08/11/22 12:22 Blood Pressure 150/83 H 08/11/22 12
== END 2022-08-11 12:55 | disposition home or self-care (01) ==
PROVIDERS: Emergency Provider Nurse Practitioner Family; PCP Family Medicine
DX: J02.0 Streptococcal pharyngitis (principal); I10 Essential (primary) hypertension; F41.9 Anxiety disorder, unspecified; F32.A Depression, unspecified; Z95.2 Presence of prosthetic heart valve
CPT/HCPCS: 87880; 99213; G0463

== ENCOUNTER 2024-05-03 16:29 | Outpatient (CLI) | payer OTHER, BC, SELFPAY ==
--- NOTE | ~2024-05-03 | XR_ITS ---
EXAM: XR foot LT min 3V DATE: 05/03/2024 16:47 HISTORY: LEFT FOOT PAIN . COMPARISON: None available. FINDINGS: Normal mineralization. No fracture or dislocation. No lytic or blastic lesion. Mild degene rative change at the first MTP joint and tibiotalar joint. Anterior and Achilles enthesopathy. Os jw icularis. No erosion or periosteal change. Soft tissues within normal limits. IMPRESSION: No acute osseous finding the left foot. Reviewed, dictated and finalized at location K.
== END 2024-05-03 16:30 | disposition home or self-care (01) ==
LOC: MICIMG 16:31
PROVIDERS: PCP Chiropractor Rehabilitation; Visit Provider Chiropractor Rehabilitation
DX: M79.672 Pain in left foot (principal)
CPT/HCPCS: 73630